=== PATIENT | male | born 2005 | race Caucasian/White ===

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

== ENCOUNTER 2024-07-19 16:33 | Emergency (ER) | payer MEDICAID, SELFPAY ==
[2024-07-19 16:48] VITALS: BP 152/81; PULSE 72; TEMP 36.8; O2SAT 98; BMI 24.4
--- NOTE | 2024-07-19 18:16 | W.ED.DENTAL ---
HPI - Dental/Oral General: Chief complaint: Dental/Oral Stated complaint: abcess tooth Time Seen by Provider: 07/19/24 18:07 Source: patient Mode of arrival: ambulatory Limitations: no limitations History of Present Illness: Patient is a 18-year-old male presenting to the emergency department complaining of right lower dental pain for the past few days. Reports a history of dental abscess to the left side, states this feels identical. Was prescribed antibiotics in the past. States that he does not see a dentist regularly, has not attempted to call 1 to set up an appointment. States pain and swelling has radiated towards his right ear and down his right neck. Denying any fevers, nausea/vomiting, or other systemic signs of illness. Denies any trouble swallowing or trouble breathing. Vitals normal during triage. Denies any trauma. MD Complaint: tooth pain Onset (ago): day(s) Duration: constant Severity: severe Relieving factors: nothing Exacerbating factors: nothing Context: history of dental caries and poor dental care Associated symptoms: Reports ear or mastoid pain; Denies fever(s) Treatment prior to arrival: none Related Data Previous Rx's Medication Instructions Recorded clindamycin HCl 300 mg capsule 300 mg PO BID 10 days #20 caps 07/19/24 lidocaine HCl 2 % mucosal solution 10 ml mucous membrane DAILY PRN 07/19/24 (Lidocaine Viscous) pain #100 mL Allergies Allergy/AdvReac Type Severity Reaction Status Date / Time amoxicillin Allergy Unknown Verified 07/19/24 16:51 Review of Systems General: Reports: 10 or more systems reviewed and unremarkable except in HPI and below Const: Denies: fever(s), chills or fatigue Eyes: Denies: change in vision ENMT: Reports: dental pain, ear or mastoid pain and sinus pain; Denies: throat pain or nasal discharge Card: Denies: chest pain, palpitations, swelling of feet/ankles or lightheadedness Resp: Denies: dyspnea, productive cough or wheezing GI: Denies: abdominal pain, nausea, vomiting, diarrhea or constipation Musc: Denies: neck pain, back pain or joint pain Skin/Breast: Denies: rash Neuro: Denies: headache(s), numbness in extremities or weakness in extremities Physical Exam Const: COMMON NORMALS: no acute distress and no limitations GENERAL APPEARANCE: cooperative, comfortable and well developed ORIENTATION/CONSCIOUSNESS: Yes awake HENMT: COMMON NORMALS: normocephalic, atraumatic, hearing grossly normal bilaterally and moist oral mucous membranes HEAD & SCALP: normocephalic and atraumatic FACE & SINUS: normal facial exam and Facial tenderness on exam of face and sinuses on the right mandible TEETH & GINGIVA: Yes abnormal tooth and associated gingiva lower right tender, with associated gingival edema and dentin fractured, Yes caries, Yes multiple restorations and Yes poor dentition Eye: COMMON NORMALS: Equal, round and reactive pupils present, EOMs intact bilaterally and conjunctivae normal CONJUNCTIVA: Yes conjunctivae normal PUPIL: Yes Equal, round and reactive pupils present Neck/C-Spine: COMMON NORMALS: full ROM, supple and no JVD Resp: COMMON NORMALS: normal respiratory effort, No retractions, No use of accessory muscles and clear to auscultation bilaterally AUSCULTATION: clear to auscultation bilaterally Cardio: COMMON NORMALS: no JVD, regular rate, regular rhythm, No clicks present (Cardio), No murmurs present (Cardio) and No rub (Cardio) RATE: regular rate RHYTHM: regular rhythm Extremity: COMMON NORMALS: normal to inspection, full ROM and capillary refill normal Psych: COMMON NORMALS: mental status grossly normal and Normal thought process present THOUGHT PROCESS: Normal thought process present Skin: COMMON NORMALS: no rashes or lesions noted GENERAL SKIN EXAM: no rashes or lesions noted Course Vital Signs: Vital signs: Vital Signs Temperature 98.2 F 07/19/24 16:48 Pulse Rate 72 07/19/24 16:48 Blood Pressure 152/81 07/19/24 16:48 Pulse Oximetry 98 07/19/24 16:48 Oxygen Delivery Me thod Room Air 07/19/24 16:48 MDM - Dental/Oral Medical Decision Making Patient directly comparing this pain to her prior dental abscess there are signs and physical exam of the potential dental abscess however there is also fracture of the tooth where he is complaining of pain. With his reports of swelling and pain expanding, will treat for the dental abscess will also provide topical lidocaine to treat for pain from here. Regardless told him to call dental office to schedule appointment, he will likely require removal of this tooth on a nonemergent basis. Told to return with any concerning signs or symptoms, he agrees with this plan at this time. He will be started on antibiotics and shot of Decadron given here for pain and swelling. No radiology studies performed this visit Discharge Plan Discharge Patient Disposition: Home Clinical Impression: Dental abscess, Fracture of tooth Condition: Stable Prescriptions: New clindamycin HCl 300 mg capsule 300 mg PO BID 10 Days Qty: 20 0RF lidocaine HCl [Lidocaine Viscous] 2 % solution 10 ml mucous membrane DAILY PRN (Reason: pain) Qty: 100 0RF Discharge Orders: Discharge ED (Routine); Ordered 07/19/24 Ordered By: Thomas Mercado Patient Instructions: Dental Abscess (ED) Activity Restrictions/Additional Instructions: Please call dentist office tomorrow to schedule an appointment. Please take antibiotics as prescribed. Apply topical lidocaine to the injured tooth. Return with any fevers, severe worsening of pain, or other concerning symptoms. Coding Level of Care Code ED [employer] App[employer]ice for Sharon Rhoades
[2024-07-19] MEDS: clindamycin 150 mg Capsule 300 MG PO (18:18)
[2024-07-19] MEDS: dexamethasone 10 mg/mL INJ IM (18:19)
[2024-07-19] MEDS: lidocaine 2% viscous 15 mL UDC 10 ML MUCOUS MEM (18:25)
[2024-07-19 18:28] VITALS: BP 154/72; PULSE 70; O2SAT 97
== END 2024-07-19 18:29 | disposition home or self-care (01) ==
PROVIDERS: Emergency Provider Physician Assistant
DX: K04.7 Periapical abscess without sinus (principal); S02.5XXA Fracture of tooth (traumatic), initial encounter for closed fracture; X58.XXXA Exposure to other specified factors, initial encounter
CPT/HCPCS: 96372; 99284; J1100